=== PATIENT | male | born 1990 | race Caucasian/White ===

== ENCOUNTER 2017-04-11 00:44 | Emergency (ER) | payer SELFPAY ==
[~2017-04-11] VITALS: Ht 172.7 cm; Wt 68.0 kg
--- NOTE | 2017-04-11 01:09 | Emergency Room Report ---
History of Present Illness General Chief Complaint: General Complaint Source: Patient Present Illness HPI 26YOM with 4 hours of scrotum "cut" bleeding Was going into shower, dislodged ?scab on right side of scrotum Unable to control bleeding with pressure, ice. Also applied alcohol to area, made bleeding worse No history of ASA, AC use, bleeding disorder Atraumatic No blood in urine Allergies: Coded Allergies: No Known Allergies (Unverified , 04/11/17) Patient History Past Medical History: none Past Surgical History: none Pertinent Family History: none Social History: Denies: alcohol use, drug use, smoking Immunizations: UTD Reviewed Nursing Documentation: PMH: Agreed, PSxH: Agreed Nursing Documentation-PMH Past Medical History: No Stated History Review of Systems All Other Systems: negative except mentioned in HPI Physical Exam Vital Signs Date Time Temp Pulse Resp B/P Pulse Ox O2 Delivery O2 Flow Rate FiO2 04/11/17 00:51 98.2 78 16 110/70 98 Room Air Sp02 EP Interpretation: reviewed, normal General Appearance: normal inspection, well appearing, no apparent distress, alert Head: atraumatic ENT: normal ENT inspection, hearing grossly normal, normal voice Neck: normal inspection, full range of motion, supple, no bony tend Respiratory: normal inspection, lungs clear, normal breath sounds, no respiratory distress, no retraction, no wheezing Cardiovascular #1: regular rate, rhythm, no edema Gastrointestinal: normal inspection, normal bowel sounds, non tender, soft, no guarding, no hernia Genitourinary: penis normal, other - Right side of scrotum: pinpoint area of bleeding only after disrupting clot. Bleeding had stopped on initial inspection Musculoskeletal: normal inspection, back normal, normal range of motion, Sammy' s Sign negative Neurologic: normal inspection, alert, responsive, speech normal Psychiatric: normal inspection, judgement/insight normal, mood/affect normal Skin: normal inspection, normal color, no rash Procedures Laceration/Wound Repair Laceration/Wound Repair : Consent: Verbal Wound Location: other - Right scrotum Wound's Depth, Shape: superficial Wound Explored: clean Betadine Prep?: No Wound Repaired With: Dermabond Sterile Dressing Applied?: Yes Splint Applied?: No Sling Applied?: No Patient Tolerated: Well Complications: None Medical Decision Making Diagnostic Impression: Primary Impression: Laceration of scrotum Qualified Codes: S31.31XA - Laceration without foreign body of scrotum and testes, initial encounter ER Course Bleeding controlled with direct pressure SMALL dab of dermabond applied to area Sterile dressing applied Dermatology followup DC home Last Vital Signs Date Time Temp Pulse Resp B/P Pulse Ox O2 Delivery O2 Flow Rate FiO2 04/11/17 00:51 98.2 78 16 110/70 98 Room Air Status: improved Disposition: HOME, SELF-CARE BHAVYA LIRA M.D. Apr 11, 2017 01:09
[2017-04-11 01:14] VITALS: BP 110/70
[2017-04-11 02:00] VITALS: BP 110/70
== END 2017-04-11 02:00 | disposition home or self-care (01) ==
LOC: EMR 00:59
DX: S31.31XA Laceration without foreign body of scrotum and testes, initial encounter (principal); X58.XXXA Exposure to other specified factors, initial encounter; Y92.9 Unspecified place or not applicable